=== PATIENT | female | born 1980 | race Caucasian/White ===

== ENCOUNTER 2018-09-21 22:43 | Emergency (ER) | payer BC ==
[~2018-09-21] VITALS: Ht 167.6 cm; Wt 72.6 kg
[2018-09-22] MEDS ORDERED: CEFADROXIL500 MG PO (01:07)
[2018-09-22] MEDS ORDERED: KETO10TA2 PO (01:07)
== END 2018-09-22 01:32 | disposition home or self-care (01) ==
LOC: ER 22:43
DX: S91.121A Laceration with foreign body of right great toe without damage to nail, initial encounter (principal); S92.421A Displaced fracture of distal phalanx of right great toe, initial encounter for closed fracture; S92.531A Displaced fracture of distal phalanx of right lesser toe(s), initial encounter for closed fracture; W26.8XXA Contact with other sharp object(s), not elsewhere classified, initial encounter; Y93.89 Activity, other specified; Y92.488 Other paved roadways as the place of occurrence of the external cause; Y99.8 Other external cause status